=== PATIENT | female | born 1965 | race Caucasian/White ===

== ENCOUNTER 2022-09-17 12:21 | Emergency (ER) | payer SELFPAY ==
[~2022-09-17] VITALS: Ht 160 cm; Wt 72.6 kg
[~2022-09-17 12:21] MED LIST: BACTRIM DS 8001 TA1 PO; BIOTIN1000 MCG PO; FISH OIL; FLAX SEED OIL1000 MG PO; VITAMIN C500 M4 PO
[2022-09-17] MEDS ORDERED: CETIRIZINE10 MG PO (12:58)
[2022-09-17] MEDS ORDERED: FLONASE ALLERG9.9 ML NAS (12:58)
[2022-09-17] MEDS ORDERED: AMOXICILLIN500 M2 PO (12:58)
== END 2022-09-17 13:15 | disposition home or self-care (01) ==
LOC: ED 12:21
DX: J01.00 Acute maxillary sinusitis, unspecified (principal); Z79.899 Other long term (current) drug therapy